=== PATIENT | male | born 2000 | race Two or more races ===

== ENCOUNTER 2024-02-04 11:55 | Emergency (ER) | payer SELFPAY ==
[2024-02-04] MEDS: Lidocaine 1% 10 ML MDV INFILT ONE (12:50)
[2024-02-04] MEDS: Bacitracin Oint 1 GM U/D Packet TOP ONE (13:12)
== END 2024-02-04 13:27 | disposition home or self-care (01) ==
LOC: MW.ED 11:55
DX: S61.216A Laceration without foreign body of right little finger without damage to nail, initial encounter (principal); Z75.8 Other problems related to medical facilities and other health care; W25.XXXA Contact with sharp glass, initial encounter
CPT/HCPCS: 12001; 99282; 99283; J3490